=== PATIENT | male | born 2000 | race Caucasian/White ===

== ENCOUNTER → 2020-01-01 | Outpatient (CLI) | payer BC, OTHER ==
--- NOTE | 2020-01-01 08:27 | US ---
EXAMINATION TYPE: US abdomen complete DATE OF EXAM: 01/01/2020 COMPARISON: NONE CLINICAL HISTORY: R10.12 Left upper quad pain. Intermittent abdomen pain x couple years that has jenny en worse recently, occasional N/V. EXAM MEASUREMENTS: Liver Length: 12.8 cm Gallbladder Wall: 0.2 cm CBD: 0.3 cm Spleen: 10.5 cm Right Kidney: 9.2 x 3.5 x 4.5 cm Left Kidney: 9.5 x 4.0 x 4.1 cm Pancreas: Limited by bowel gas Liver: wnl Gallbladder: wnl Evidence for sonographic Desai's sign: no CBD: wnl Spleen: 1.1 x 1.1 x 1.2cm isoechoic area splenic hilum, possible accessory spleen Right Kidney: wnl Left Kidney: wnl Upper IVC: wnl Abd Aorta: wnl The liver is homogenous. The intrahepatic portion of the IVC and proximal abdominal aorta are within normal limits. There is no evidence of cholelithiasis. Common bile duct is unremarkable. The visu alized portions of the pancreas are homogenous. The spleen is unremarkable. Kidneys are symmetric a nd free of hydronephrosis. No renal lesions are seen. IMPRESSION: 1. No acute process.
--- NOTE | 2020-01-01 08:48 | XR ---
EXAMINATION TYPE: XR abdomen 1V DATE OF EXAM: 01/01/2020 COMPARISON: NONE HISTORY: Pain TECHNIQUE: One view abdominal series FINDINGS: The osseous structures are intact. The bowel gas pattern is nonspecific. Lung bases are clear. IMPRESSION: 1. Nonspecific abdomen.
== END | disposition home or self-care (01) ==
LOC: RADUSWWP 07:43
PROVIDERS: ATTEND Family Medicine
DX: R10.12 Left upper quadrant pain (principal); K21.9 Gastro-esophageal reflux disease without esophagitis; K59.00 Constipation, unspecified; R19.7 Diarrhea, unspecified
CPT/HCPCS: 74018; 76700